=== PATIENT | female | born 1995 | race Caucasian/White ===

== ENCOUNTER 2019-10-10 14:31 | Emergency (ER) | payer SELFPAY ==
[2019-10-10] MEDS: Sodium Chloride 0.9% 1,000 ML IV ONE (14:45)
[2019-10-10 15:14] VITALS: BP 122/68; PULSE 105
--- NOTE | 2019-10-10 16:06 | EDM.PDOC ---
ED HPI GENERAL MEDICAL PROBLEM - General Chief Complaint: General Stated Complaint: SICK AND Time Seen by Provider: 10/10/19 15:50 Source of Information: Reports: Patient, RN History Limitations: Reports: No Limitations - History of Present Illness INITIAL COMMENTS - FREE TEXT/NARRATIVE: 23 yo female presents with stomach pain, nausea, sore throat, cough, achy all over and not feeling well for about 2 days. She states positive for about 2 weeks. Right Flank Pain Score (Numeric/FACES): 9 - Related Data Allergies Allergy/AdvReac Type Severity Reaction Status Date / Time reggie flavor Allergy Severe Anaphylactic Verified 08/11/16 00:12 Shock peanut Allergy Severe Anaphylactic Verified 08/11/16 00:12 Shock Home Meds: Home Meds Acetaminophen/Codeine [Tylenol with Codeine No.3 300MG/30MG] 2 tab PO Q4H PRN [History] Albuterol [Ventolin HFA] 1 puff INH Q4H PRN 11/05/13 [History] Ondansetron [Zofran] 4 mg PO Q8H PRN 11/05/13 [History] EPINEPHrine [Epipen 2-Mirza] 0.3 mg IM ASDIRECTED PRN 04/20/14 [History] Albuterol [Proventil Neb Soln] 1 - 2 mg NEB Q6H PRN 08/12/16 [Rx] Levofloxacin [IJD: Levofloxacin] 750 mg PO DAILY #10 tab 08/12/16 [Rx] Levonorgestrel-Ethin Estradiol [Orsythia-28 Tablet] 1 each PO QPM 08/12/16 [Rx] levETIRAcetam [Keppra] 1,000 mg PO DAILY 08/12/16 [Rx] Past Medical History - Past Health History Medical/Surgical History: Denies Medical/Surgical History HEENT History: Reports: Impaired Vision Respiratory History: Reports: Asthma, Pneumonia, Recurrent, SOB Gastrointestinal History: Reports: Bowel Obstruction Genitourinary History: Reports: UTI, Recurrent 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: Reports: None Musculoskeletal History: Reports: Back Pain, Chronic, Other (See Below) Other Musculoskeletal History: Degenerative Disc Disease Psychiatric History: Reports: Antisocial Behaviors, Anxiety, Depression - Past Surgical History HEENT Surgical History: Reports: None Respiratory Surgical History: Reports: None GI Surgical History: Reports: None Female Surgical History: Reports: None Musculoskeletal Surgical History: Reports: None Social & Family History - Family History Family Medical History: Noncontributory - Caffeine Use Caffeine Use: Reports: None ED ROS GENERAL - Review of Systems Review Of Systems: See Below Constitutional: Reports: No Symptoms HEENT: Reports: No Symptoms Respiratory: Reports: Cough Cardiovascular: Reports: No Symptoms GI/Abdominal: Reports: Nausea. Denies: Constipation, Diarrhea : Reports: Other (no menses for about 2-4 months.). Denies: Dysuria Musculoskeletal: Reports: No Symptoms Skin: Reports: No Symptoms Neurological: Reports: No Symptoms Psychiatric: Reports: No Symptoms ED EXAM, GENERAL - Physical Exam Exam: See Below Exam Limited By: No Limitations General Appearance: Alert, No Apparent Distress Ears: Normal External Exam, Hearing Grossly Normal Nose: Normal Inspection, Normal Mucosa Throat/Mouth: Normal Voice, No Airway Compromise Head: Atraumatic, Normocephalic Neck: Normal Inspection, Supple, Non-Tender Respiratory/Chest: Lungs Clear, Normal Breath Sounds Cardiovascular: Regular Rate, Rhythm, No Edema GI/Abdominal: Normal Bowel Sounds, Soft, No Distention, Other (tenderness to lower abdomen). No: Guarding, Rigid, Rebound Back Exam: No: Paraspinal Tenderness, Vertebral Tenderness Extremities: Normal Inspection, Non-Tender, No Pedal Edema, Normal Capillary Refill Neurological: Alert, Oriented, Normal Cognition Psychiatric: Normal Affect, Normal Mood Skin Exam: Warm, Dry, Normal Color Course - Vital Signs Last Recorded V/S: Last Vital Signs Temp 97.6 F 10/10/19 15:00 Pulse 105 H 10/10/19 15:00 Resp 20 10/10/19 15:00 BP 122/68 10/10/19 15:00 Pulse Ox 100 10/10/19 15:00 - Orders/Labs/Meds Labs: Laboratory Tests 10/10/19 10/10/19 10/10/19 Range/Units 14:10 14:56 14:56 WBC (4.0-11.0) K/uL RBC (3.80-5.80) M/uL Hgb (11.5-16.5) g/dL Hct (37.0-47.0) % MCV (76-96) fL MCH (27.0-32.0) pg MCHC (31.0-35.0) g/dL RDW (11.0-16.0) % Plt Count (150-500) K/uL MPV (6.0-10.0) fL Neut % (Auto) (45.0-70.0) % Lymph % (Auto) (20.0-40.0) % [place] % (Auto) (3.0-10.0) % Eos % (Auto) (1.0-5.0) % Baso % (Auto) (0.0-0.5) % Neut # (Auto) (2.00-7.50) K/uL Lymph # (Auto) (1.50-4.00) K/uL [place] # (Auto) (0.20-0.80) K/uL Eos # (Auto) (0.04-0.40) K/uL Baso # (Auto) (0.02-0.10) K/uL Sodium 137 (136-145) mmol/L Potassium 3.6 (3.5-5.1) mmol/L Chloride 100 (98-107) mmol/L Carbon Dioxide 24.6 (21.0-32.0) mmol/L Anion Gap 16.0 H (5.0-15.0) mmol/L BUN 7 L D (8-26) mg/dL Creatinine 0.67 (0.55-1.02) mg/dL Est Cr Clr Drug Dosing TNP Estimated GFR (MDRD) > 60 (>60) MLS/MIN BUN/Creatinine Ratio 10.4 (6-25) Glucose 95 (74-100) mg/dL Calcium 8.6 (8.5-10.1) mg/dL Total Bilirubin 0.3 (0.0-1.0) mg/dL AST 16 (15-37) U/L ALT 25 (12-78) U/L Alkaline Phosphatase 93 (46-116) U/L Total Protein 7.4 (6.4-8.2) g/dL Albumin 3.3 L (3.4-5.0) g/dL Globulin 4.1 (2.2-4.2) g/dL Albumin/Globulin Ratio 0.8 (0.8-2.0) HCG, Quant (0-6) mIU/mL Urine Color Yellow Urine Appearance Slightly cloudy (CLEAR) Urine pH 6.5 (5.0-8.0) Ur Specific [place] 1.020 (1.003-1.030) Urine Protein Trace H (NEGATIVE) mg/dL Urine Glucose (UA) Negative (NEGATIVE) mg/dL Urine Ketones 40 H (NEGATIVE) mg/dL Urine Occult Blood Negative (NEGATIVE) Urine Nitrite Negative (NEGATIVE) Urine Bilirubin Small H (NEGATIVE) Urine Urobilinogen 0.2 (0.2-1.0) E.U./dL Ur Leukocyte Esterase Negative (NEGATIVE) Urine RBC Not seen /HPF Urine WBC 0-5 H /HPF Ur Squamous Epith Cells Moderate /HPF Urine Bacteria Few /HPF Urine HCG, Qual Positive H (NEGATIVE) 10/10/19 10/10/19 Range/Units 15:20 16:06 WBC 4.3 D (4.0-11.0) K/uL RBC 3.83 (3.80-5.80) M/uL Hgb 11.0 L (11.5-16.5) g/dL Hct 34.4 L (37.0-47.0) % MCV 90 (76-96) fL MCH 28.7 (27.0-32.0) pg MCHC 32.0 (31.0-35.0) g/dL RDW 14.6 (11.0-16.0) % Plt Count 190 (150-500) K/uL MPV 11.1 H (6.0-10.0) fL Neut % (Auto) 54.7 (45.0-70.0) % Lymph % (Auto) 29.0 (20.0-40.0) % [place] % (Auto) 15.2 H (3.0-10.0) % Eos % (Auto) 0.9 L (1.0-5.0) % Baso % (Auto) 0.2 (0.0-0.5) % Neut # (Auto) 2.37 (2.00-7.50) K/uL Lymph # (Auto) 1.26 L (1.50-4.00) K/uL [place] # (Auto) 0.66 (0.20-0.80) K/uL Eos # (Auto) 0.04 (0.04-0.40) K/uL Baso # (Auto) 0.01 L (0.02-0.10) K/uL Sodium (136-145) mmol/L Potassium (3.5-5.1) mmol/L Chloride (98-107) mmol/L Carbon Dioxide (21.0-32.0) mmol/L Anion Gap (5.0-15.0) mmol/L BUN (8-26) mg/dL Creatinine (0.55-1.02) mg/dL Est Cr Clr Drug Dosing Estimated GFR (MDRD) (>60) MLS/MIN BUN/Creatinine Ratio (6-25) Glucose (74-100) mg/dL Calcium (8.5-10.1) mg/dL Total Bilirubin (0.0-1.0) mg/dL AST (15-37) U/L ALT (12-78) U/L Alkaline Phosphatase (46-116) U/L Total Protein (6.4-8.2) g/dL Albumin (3.4-5.0) g/dL Globulin (2.2-4.2) g/dL Albumin/Globulin Ratio (0.8-2.0) HCG, Quant 69835 H (0-6) mIU/mL Urine Color Urine Appearance (CLEAR) Urine pH (5.0-8.0) Ur Specific [place] (1.003-1.030) Urine Protein (NEGATIVE) mg/dL Urine Glucose (UA) (NEGATIVE) mg/dL Urine Ketones (NEGATIVE) mg/dL Urine Occult Blood (NEGATIVE) Urine Nitrite (NEGATIVE) Urine Bilirubin (NEGATIVE) Urine Urobilinogen (0.2-1.0) E.U./dL Ur Leukocyte Esterase (NEGATIVE) Urine RBC /HPF Urine WBC /HPF Ur Squamous Epith Cells /HPF Urine Bacteria /HPF Urine HCG, Qual (NEGATIVE) Meds: Medications Discontinued Medications Generic Name Dose Route Start Last Admin Trade Name Freq PRN Reason Stop Dose Admin Sodium Chloride 1,000 mls @ 999 drops/hr 10/10/19 14:45 10/10/19 14:45 Normal Saline IV 10/11/19 05:45 999 drops/hr .BOLUS ONE Administration Ondansetron HCl 4 mg 10/10/19 16:08 10/10/19 16:22 Zofran Odt PO 10/10/19 16:09 4 mg ONETIME ONE Administration Ondansetron HCl Confirm 10/10/19 16:17 10/10/19 17:29 Zofran Odt Administered 10/10/19 16:18 Not Given Dose 4 mg .ROUTE .[facility] - Re-Assessments/Exams Free Text/Narrative Re-Assessment/Exam: 10/10/19 16:09 CBC, CMP and U/A completed. No leukocytosis, glucose 95, no nitrites and no leuk est to u/a. Zofran 4 mg PO given X 1. STrep screen and influenza screen completed and HCG. HCG > 42442 about 6 weeks gestation. Pt is taking metformin for diabetes type 2 as reported by pt. Departure - Departure Time of Disposition: 17:15 Disposition: Home, Self-Care 01 Condition: Good Clinical Impression: Nausea and vomiting during - Discharge Information *PRESCRIPTION DRUG MONITORING PROGRAM REVIEWED*: Not Applicable *COPY OF PRESCRIPTION DRUG MONITORING REPORT IN PATIENT HUMA: Not Applicable Instructions: [place] [facility] Referrals: PCP,None [Primary Care Provider] - Forms: ED Department Discharge Additional Instructions: Increase your fluid intake with gatorade or powerade, keeping an eye on your blood sugar. Get plenty of rest and eating only small amounts several times a day with a bland diet. Follow up with OB-ACTIVITIES ATTENDANT for the either in [place] or [place]. Sepsis Event Note - Evaluation Sepsis Screening Result: No Definite Risk - Focused Exam Vital Signs: Vital Signs Temp Pulse Resp BP Pulse Ox 10/10/19 15:00 97.6 F 105 H 20 122/68 100 Date Exam was Performed: 10/10/19 Time Exam was Performed: 18:19 - Assessment/Plan Plan: of about 6 week gestation, nausea relieved with Zofran. IV fluid bolus given. Review of lab results and no UTI, no strep and no influenza. Recommend follow-up with WILDLIFE BIOSTATION RESEARCH ECOLOGIST to establish care and start vitamins. Recommend rest and adequate fluids to prevent dehydration. Monitor blood sugars and adequate diet as tolerated. RTC is prn for this. Note is written for her work. Pt discharge in no acute distress.
[2019-10-10] MEDS: Ondansetron 4 MG Tab.DIS PO ONE (16:22)
[2019-10-10] MEDS: Ondansetron 4 MG Tab.DIS ONE (17:29)
== END 2019-10-10 17:14 | disposition home or self-care (01) ==
LOC: LB.ED 14:31
DX: O21.9 Vomiting of pregnancy, unspecified (principal); O99.511 Diseases of the respiratory system complicating pregnancy, first trimester; J45.909 Unspecified asthma, uncomplicated; Z91.018 Allergy to other foods; Z91.010 Allergy to peanuts; Z79.899 Other long term (current) drug therapy
CPT/HCPCS: 36415; 80053; 81001; 81025; 84702; 85025; 87430; 87804; 87804-59; 96360; 99284-25; A9270-GY; J7030

== ENCOUNTER 2019-12-01 13:36 | Emergency (ER) | payer MEDICAID | END 2019-12-01 14:25 | disposition home or self-care (01) | LOC: LB.ED 13:36 | DX: Z53.21 Procedure and treatment not carried out due to patient leaving prior to being seen by health care provider (principal) ==

== ENCOUNTER 2019-12-19 19:55 | Emergency (ER) | payer MEDICAID ==
[2019-12-19 20:23] VITALS: BP 131/89; PULSE 110
== END 2019-12-19 20:21 | disposition left against medical advice (07) ==
LOC: LB.ED 19:55
DX: Z53.21 Procedure and treatment not carried out due to patient leaving prior to being seen by health care provider (principal)
CPT/HCPCS: 82962

== ENCOUNTER 2020-02-05 10:48 | Emergency (ER) | payer MEDICAID ==
--- NOTE | 2020-02-05 11:18 | EDM.PDOC ---
ED HPI GENERAL MEDICAL PROBLEM - General Stated Complaint: OB IN LABOR Time Seen by Provider: 02/05/20 10:48 - History of Present Illness INITIAL COMMENTS - FREE TEXT/NARRATIVE: Virgie presented to my emergency department today with a request of being transferred to [place] for obstetrical care. She stated that she called to let her doctor know that she has had ongoing "Wetzel Ku" since 3 AM. She denies any SROM, bleeding, or increased intensity or frequency of her abdominal discomfort. She describes this as "like cramps" and has had plentiful movement. She initially stated she called her doctor's office, spoke with the nurse of an on-call provider, and was instructed to come here. There was some mention that I could possibly have her placed in a ambulance immediately and sent directly down there. It seems like this is her own expectation, but before we can really discuss things, she simply states that she does not want to be evaluated here and wants her boyfriend to take her down to [place] directly because that will be quicker. I tried to explain that I could certainly call [place] and make those arrangements. I called right away and there was no answer. I explained that it would be helpful to check her cervix, and she was definitely high/posterior/closed. She did not have really any of the effacement I would expect, as well as no gross vaginal bleeding or discharge. Palpation of her abdomen revealed no apparent tenderness she was noted to have 1 of her paroxysms of abdominal discomfort where she would perform a Valsalva maneuver, but her uterus never really felt firm to me or and experienced RN also palpating her belly. At that point I tried to explain risks versus benefits of staying here for further evaluation versus signing out AMA. She is definitely set that this is her decision. I asked that the nursing staff see if there is anything else we could do to help her to change her mind to ensure the safety of her and her baby, and I also apologize for what ever I could have said or done to offend her in any way. I called down to [place] and the mission support specialist on-call Dr. Rabago was in a delivery, so I did leave a message that virgie will be traveling their way apparently via private vehicle. - Related Data Allergies Allergy/AdvReac Type Severity Reaction Status Date / Time reggie flavor Allergy Severe Anaphylactic Verified 12/19/19 19:58 Shock peanut Allergy Severe Anaphylactic Verified 12/19/19 19:58 Shock cephalexin [From Keflex] Allergy Cannot Verified 12/19/19 19:58 Remember Penicillins Allergy Cannot Verified 12/19/19 19:58 Remember Home Meds: Home Meds Acetaminophen/Codeine [Tylenol with Codeine No.3 300MG/30MG] 2 tab PO Q4H PRN [History] Albuterol [Ventolin HFA] 1 puff INH Q4H PRN 11/05/13 [History] Ondansetron [Zofran] 4 mg PO Q8H PRN 11/05/13 [History] EPINEPHrine [Epipen 2-Mirza] 0.3 mg IM ASDIRECTED PRN 04/20/14 [History] Albuterol [Proventil Neb Soln] 1 - 2 mg NEB Q6H PRN 08/12/16 [Rx] Levofloxacin [IJD: Levofloxacin] 750 mg PO DAILY #10 tab 08/12/16 [Rx] Levonorgestrel-Ethin Estradiol [Orsythia-28 Tablet] 1 each PO QPM 08/12/16 [Rx] levETIRAcetam [Keppra] 1,000 mg PO DAILY 08/12/16 [Rx] Past Medical History - Past Health History Medical/Surgical History: Denies Medical/Surgical History HEENT History: Reports: Impaired Vision Respiratory History: Reports: Asthma, Pneumonia, Recurrent, SOB Gastrointestinal History: Reports: Bowel Obstruction Genitourinary History: Reports: UTI, Recurrent [employer]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 Musculoskeletal History: Reports: Back Pain, Chronic, Other (See Below) Other Musculoskeletal History: Degenerative Disc Disease Psychiatric History: Reports: Antisocial Behaviors, Anxiety, Depression - Past Surgical History HEENT Surgical History: Reports: None Respiratory Surgical History: Reports: None GI Surgical History: Reports: None Female Surgical History: Reports: None Musculoskeletal Surgical History: Reports: None Social & Family History - Family History Family Medical History: Noncontributory - Caffeine Use Caffeine Use: Reports: None ED ROS GENERAL - Review of Systems Review Of Systems: Unable To Obtain Reason Not Obtained: Lack of patient cooperation ED EXAM, GENERAL - Physical Exam Exam: See Below Exam Limited By: Uncooperative General Appearance: Alert, WD/WN, Anxious Departure - Departure Time of Disposition: 11:00 Disposition: Against Medical Advice 07 Condition: Undetermined Clinical Impression: Abdominal pain during intrauterine - Discharge Information Referrals: PCP,None [Primary Care Provider] -
== END 2020-02-05 11:02 | disposition left against medical advice (07) ==
LOC: LB.ED 10:48
DX: O99.89 Other specified diseases and conditions complicating pregnancy, childbirth and the puerperium (principal); R10.9 Unspecified abdominal pain; O99.511 Diseases of the respiratory system complicating pregnancy, first trimester; J45.909 Unspecified asthma, uncomplicated; Z91.010 Allergy to peanuts; Z91.018 Allergy to other foods; Z88.1 Allergy status to other antibiotic agents; Z88.0 Allergy status to penicillin; Z79.899 Other long term (current) drug therapy
CPT/HCPCS: 99282; 99283

== ENCOUNTER 2021-05-23 20:40 | Emergency (ER) | payer MEDICAID, OTHER ==
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
[2021-05-23] MEDS ORDERED: LORazepam 2 MG/ML SDV IVPUSH ONE (21:29)
[2021-05-24] MEDS ORDERED: Sodium Chloride 0.9% 10 ML Syringe FLUSH PRN (00:48)
[2021-05-24] MEDS ORDERED: Sodium Chloride 0.9% 1,000 ML IV SCH (01:00)
[2021-05-24 01:35] VITALS: BP 121/79
[2021-05-24 01:36] VITALS: PULSE 94
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
== END 2021-05-23 22:25 | disposition home or self-care (01) ==
LOC: LB.ED 20:40
DX: S06.0X9A Concussion with loss of consciousness of unspecified duration, initial encounter (principal); S01.81XA Laceration without foreign body of other part of head, initial encounter; S01.111A Laceration without foreign body of right eyelid and periocular area, initial encounter; R41.3 Other amnesia; J45.909 Unspecified asthma, uncomplicated; Z91.018 Allergy to other foods; Z91.010 Allergy to peanuts; Z88.1 Allergy status to other antibiotic agents; Z88.0 Allergy status to penicillin; Z79.899 Other long term (current) drug therapy; V89.2XXA Person injured in unspecified motor-vehicle accident, traffic, initial encounter
CPT/HCPCS: 12014; 70450; 72125; 96374; 99284; A0425; A0429; J2060; J7030

== ENCOUNTER 2021-11-17 09:32 | Emergency (ER) | payer MEDICAID ==
[2021-11-17 09:51] VITALS: BP 100/64; PULSE 106
[2021-11-17] MEDS ORDERED: Sodium Chloride 0.9% 10 ML Syringe FLUSH PRN (10:00)
[2021-11-17] MEDS: Ondansetron 4 MG Tab.DIS PO ONE (10:04)
[2021-11-17] MEDS: Sodium Chloride 0.9% 1,000 ML IV SCH (10:28)
[2021-11-17] MEDS: Ketorolac 30 MG/ML SDV IVPUSH ONE (10:32)
[2021-11-17] MEDS: Ketorolac 30 MG/ML SDV ONE (12:45)
[2021-11-17] MEDS: Ondansetron 4 MG Tab.DIS ONE (12:45)
== END 2021-11-17 12:20 | disposition home or self-care (01) ==
LOC: LB.ED 09:32
DX: A08.4 Viral intestinal infection, unspecified (principal); J45.909 Unspecified asthma, uncomplicated; Z88.0 Allergy status to penicillin; Z91.010 Allergy to peanuts; Z88.1 Allergy status to other antibiotic agents; Z91.018 Allergy to other foods
CPT/HCPCS: 36415; 80048; 80307; 85025; 87804; 96374; 99284; J1885; J7030; Q0162

== ENCOUNTER 2022-04-29 02:02 | Emergency (ER) | payer MEDICAID ==
[2022-04-29 03:20] LABS: ESTIMATED GFR 114 mL/min (>60)
[2022-04-29 04:01] VITALS: BP 119/85; PULSE 86
[2022-05-01 09:10] LABS: HIV AB/P24 AG SCREEN Non Reactive (Non Reactive)
[2022-05-02 01:11] LABS: CHLAMYDIA TRACHOMATIS, NAA Negative (Negative); NEISSERIA GONORRHOEAE, NAA Negative (Negative)
[2022-05-03 22:07] LABS: T PALLIDUM ANTIBODIES Non Reactive (Non Reactive)
[2022-05-04 12:10] LABS: HSV-1 DNA Negative (Negative); HSV-2 DNA Negative (Negative)
== END 2022-04-29 03:45 | disposition home or self-care (01) ==
LOC: LB.ED 02:09
DX: N76.89 Other specified inflammation of vagina and vulva (principal); J45.909 Unspecified asthma, uncomplicated; Z91.010 Allergy to peanuts; Z88.0 Allergy status to penicillin; Z88.1 Allergy status to other antibiotic agents; Z91.048 Other nonmedicinal substance allergy status; Z79.899 Other long term (current) drug therapy; Z90.49 Acquired absence of other specified parts of digestive tract
CPT/HCPCS: 36415; 80048; 81025; 85025; 86780; 87389; 87491; 87529; 87529-59; 87591; 99281; 99283

== ENCOUNTER 2022-11-27 23:27 | Emergency (ER) | payer MEDICAID ==
[2022-11-27 23:50] VITALS: BP 108/60
[2022-11-27] MEDS ORDERED: Acetaminophen/Codeine 300-30 MG Tab ONE (23:50)
[2022-11-28 01:54] VITALS: PULSE 96
== END 2022-11-28 00:30 | disposition home or self-care (01) ==
LOC: LB.ED 23:27
DX: O9A.211 Injury, poisoning and certain other consequences of external causes complicating pregnancy, first trimester (principal); S39.012A Strain of muscle, fascia and tendon of lower back, initial encounter; O99.511 Diseases of the respiratory system complicating pregnancy, first trimester; J45.909 Unspecified asthma, uncomplicated; Z91.010 Allergy to peanuts; Z88.0 Allergy status to penicillin; Z88.1 Allergy status to other antibiotic agents; Z91.018 Allergy to other foods; Z3A.11 11 weeks gestation of pregnancy
CPT/HCPCS: 99283; A9270-GY

== ENCOUNTER 2023-01-01 19:56 | Observation (INO) | payer MEDICAID ==
[2023-01-01] MEDS ORDERED: Sodium Chloride 0.9% 10 ML Syringe FLUSH PRN (20:07)
[2023-01-01] MEDS: Ondansetron 4 MG/2 ML SDV IVPUSH ONE ×2 (20:46→21:21)
[2023-01-01] MEDS: Sodium Chloride 0.9% 1,000 ML IV SCH ×2 (20:52→23:00)
[2023-01-01 20:54] LABS: ESTIMATED GFR 128 mL/min (>60)
[2023-01-01] MEDS ORDERED: Ondansetron 4 MG/2 ML SDV ONE (20:56)
[2023-01-01] MEDS ORDERED: Morphine 2 MG/ML SYRINGE IVPUSH ONE (21:03)
[2023-01-01] MEDS ORDERED: Morphine 2 MG/ML SYRINGE ONE (21:15)
[2023-01-01] MEDS ORDERED: Nitrofurantoin Monohydrate/Macrocrystalline 100 MG Cap PO ONE (21:18)
[2023-01-01] MEDS ORDERED: Prochlorperazine 10 MG/2 ML SDV IVPUSH ONE (21:27)
[2023-01-01] MEDS ORDERED: Prochlorperazine 10 MG/2 ML SDV ONE (21:49)
[2023-01-01] MEDS ORDERED: Acetaminophen 325 MG Tab PO PRN (23:30)
[2023-01-01] MEDS ORDERED: Promethazine 6.25 MG in Sodium Chloride 0.9% 50 ML IV PRN (23:30)
[2023-01-01] MEDS ORDERED: Morphine 2 MG/ML SYRINGE IVPUSH PRN (23:30)
[2023-01-01] MEDS ORDERED: Promethazine 25 MG Tab ONE (23:50)
[2023-01-01] MEDS ORDERED: Nitrofurantoin Macrocrystal 50 MG Cap ONE (23:50)
[2023-01-02] MEDS: Lactated Ringers 1,000 ML IV SCH ×2 (00:28→07:55)
[2023-01-02] MEDS ORDERED: Nitrofurantoin Monohydrate/Macrocrystalline 100 MG Cap PO SCH (08:00)
[2023-01-02] MEDS ORDERED: Potassium Chloride 20 MEQ Tab.ER PO ONE (10:04)
[2023-01-02] MEDS ORDERED: Aluminum Hydroxide/Magnesium Hydroxide/Simethicone Susp 30 ML Cup PO PRN (11:19)
[2023-01-02 16:34] VITALS: BP 104/60; PULSE 80
[2023-01-02] MEDS ORDERED: Potassium Chloride 20 MEQ Tab.ER PO SCH (20:00)
== END 2023-01-02 16:30 | disposition home or self-care (01) ==
LOC: LB.ED 19:56 → LB.MS 23:38
PROVIDERS: ADMIT Surgery; ATTEND Surgery
DX: O21.9 Vomiting of pregnancy, unspecified (principal); O99.891 Other specified diseases and conditions complicating pregnancy; R10.9 Unspecified abdominal pain; D72.829 Elevated white blood cell count, unspecified; O23.02 Infections of kidney in pregnancy, second trimester; O99.519 Diseases of the respiratory system complicating pregnancy, unspecified trimester; J45.909 Unspecified asthma, uncomplicated; O99.350 Diseases of the nervous system complicating pregnancy, unspecified trimester; G43.909 Migraine, unspecified, not intractable, without status migrainosus; O99.340 Other mental disorders complicating pregnancy, unspecified trimester; F41.9 Anxiety disorder, unspecified; F32.A Depression, unspecified; Z72.89 Other problems related to lifestyle; Z79.899 Other long term (current) drug therapy; Z88.0 Allergy status to penicillin; Z88.1 Allergy status to other antibiotic agents; Z90.49 Acquired absence of other specified parts of digestive tract
CPT/HCPCS: 36415; 80048; 80053; 81001; 82947; 84702; 85027; 86140; 87086; 96361; 96374; 96375; 96376; 99222; 99238; 99284-25; A9270-GY; G0378; J0780; J2270; J2405; J3490; J7030; J7120

== ENCOUNTER 2023-10-31 10:46 | Emergency (ER) | payer MEDICAID ==
[2023-10-31 11:11] VITALS: BP 111/78; PULSE 100
== END 2023-10-31 11:20 | disposition home or self-care (01) ==
LOC: LB.ED 10:46
DX: Z02.89 Encounter for other administrative examinations (principal); E11.9 Type 2 diabetes mellitus without complications; Z79.899 Other long term (current) drug therapy; Z91.010 Allergy to peanuts; Z88.1 Allergy status to other antibiotic agents; Z91.018 Allergy to other foods; Z88.0 Allergy status to penicillin
CPT/HCPCS: 99281; 99282

== ENCOUNTER 2023-11-28 17:36 | Emergency (ER) | payer MEDICAID ==
[~2023-11-28 17:36] MED LIST: Doxycycline 100 MG Cap ONE; Naproxen 500 MG Tab ONE
[2023-11-28 17:48] VITALS: BP 122/87; PULSE 119
[2023-11-28] MEDS: Ketorolac 60 MG/2 ML SDV IM ONE (18:00)
[2023-11-28] MEDS: Ketorolac 60 MG/2 ML SDV ONE (18:23)
== END 2023-11-28 18:10 | disposition home or self-care (01) ==
LOC: LB.ED 17:36
DX: K02.9 Dental caries, unspecified (principal)
CPT/HCPCS: 96372; 99282; 99283; A9270-GY; J1885